=== PATIENT | female | born 1935 | race Caucasian/White ===

== ENCOUNTER 2022-04-18 17:28 | Inpatient (IN) | payer MEDICARE, MEDICAID ==
[~2022-04-18] VITALS: Ht 160 cm; Wt 63.5 kg
[2022-04-18 19:50] LABS: CALCIUM, SERUM 9.2 mg/dL (8.5-10.1); CARBON DIOXIDE 25 mmol/L (21-32); CHLORIDE 106 mmol/L (98-107); CREATININE 0.9 mg/dL (0.6-1.3); GLUCOSE 110 mg/dL (74-106); POTASSIUM 3.8 mmol/L (3.5-5.1); SODIUM SERUM 143 mmol/L (136-145); UREA NITROGEN, BLOOD 17 mg/dL (7-18)
[2022-04-18 19:51] LABS: BASOPHILS % (AUTO) 0.3 % (0.0-2.0); EOSINOPHILS % (AUTO) 0.8 % (0.0-6.0); HEMATOCRIT 34 % (33-45); HEMOGLOBIN 11.6 g/dL (11.5-14.8); LYMPHOCYTES # (AUTO) 1.3 K/uL (0.8-4.8); LYMPHOCYTES % (AUTO) 34.1 % (20.0-44.0); MEAN CORPUSCULAR HGB CONC 34 g/dl (31.0-36.0); MEAN CORPUSCULAR VOLUME 95 fL (82-100); MONOCYTES # (AUTO) 0.4 K/uL (0.1-1.30); MONOCYTES % (AUTO) 11.1 % (2.0-12.0); NEUTROPHILS # (AUTO) 2.1 K/uL (1.8-8.9); NEUTROPHILS % (AUTO) 53.7 % (43.0-81.0); PLATELET COUNT (AUTO) 178 K/uL (150-450); RED BLOOD CELL COUNT(AUTO) 3.57 MIL/uL (4.0-5.2)
[2022-04-18 19:58] LABS: ALANINE AMINOTRANSFERASE 23 U/L (12-78); ALCOHOL, BLOOD < 3 mg/dL (0-0); ALKALINE PHOSPHATASE 80 U/L (46-116); BILIRUBIN,DIRECT 0.1 mg/dL (0.0-0.2); BILIRUBIN,TOTAL 0.3 mg/dL (0.2-1.0); TOTAL PROTEIN, SERUM 7.5 g/dL (6.4-8.2)
[2022-04-18 20:02] LABS: BILIRUBIN,URINE NEGATIVE (NEGATIVE); COLOR,URINE YELLOW (YELLOW); LEUKOCYTE ESTERASE ,URINE NEGATIVE (NEGATIVE); NITRITE, URINE NEGATIVE (NEGATIVE); PROTEIN,URINE NEGATIVE (NEGATIVE); UGLUCOSE NEGATIVE (NEGATIVE); UROBILINOGEN,URINE 0.2 EU/dL (0.2)
[2022-04-18 20:05] LABS: ACETAMINOPHEN < 10 ug/ml (10-30)
[2022-04-18] MEDS ORDERED: LORAZEPAM 1 MG TABLET ONE (21:49)
[2022-04-18] MEDS ORDERED: LORAZEPAM 1 MG TABLET PO ONE (22:00)
[2022-04-18] MEDS ORDERED: OLANZAPINE 10 MG VIAL IM ONE ×2 (22:18→22:30)
[2022-04-18] MEDS ORDERED: diphenhydrAMINE HCL 50 MG/ML VIAL ONE (22:18)
[2022-04-18] MEDS ORDERED: diphenhydrAMINE HCL 50 MG/ML VIAL IM ONE (22:30)
[2022-04-18 22:47] LABS: ASPARTATE AMINOTRANSFERASE 20 U/L (15-37)
[2022-04-19] MEDS ORDERED: LOSA100T31 PO (00:54)
[2022-04-19] MEDS ORDERED: ROSU20TA2 PO (00:54)
[2022-04-19] MEDS ORDERED: CYAN-51 PO (00:54)
[2022-04-19] MEDS ORDERED: AMLO-213 PO (00:54)
[2022-04-19] MEDS ORDERED: LATA2.5D15 EACHEYE (00:54)
[2022-04-19] MEDS ORDERED: CHOL100043 PO (01:51)
[2022-04-19] MEDS ORDERED: ACETAMINOPHEN 325 MG TABLET PO PRN (02:00)
[2022-04-19] MEDS ORDERED: LORAZEPAM 0.5 MG TABLET PO PRN (02:00)
[2022-04-19] MEDS ORDERED: MAGNESIUM HYDROXIDE 30 ML UDC PO PRN (02:00)
[2022-04-19] MEDS ORDERED: BLOOD SUGAR DIAGNOSTIC 1 EACH STRIP IN ONE (02:00)
[2022-04-19] MEDS ORDERED: MAG HYDROX/AL HYDROX/SIMETH 30 ML UDC PO PRN (02:00)
[2022-04-19] MEDS ORDERED: TEMAZEPAM 7.5 MG CAPSULE PO PRN (02:00)
[2022-04-19 02:33] VITALS: BP 130/74
[2022-04-19 08:00] VITALS: BP 146/63
[2022-04-19] MEDS: CYANOCOBALAMIN 500 MCG TABLET PO SCH (12:45)
[2022-04-19] MEDS: CHOLECALCIFEROL (VITAMIN D 3) 400 UNIT TABLET PO SCH (12:45)
[2022-04-19] MEDS: AMLODIPINE BESYLATE 10 MG TABLET PO SCH (12:45)
[2022-04-19] MEDS: LOSARTAN POTASSIUM 50 MG TABLET PO SCH (12:45)
[2022-04-19 16:00] VITALS: BP 109/62
[2022-04-19 20:23] VITALS: BP 111/62
[2022-04-19] MEDS: MIRTAZAPINE 15 MG TABLET PO SCH (21:10)
[2022-04-19] MEDS: ATORVASTATIN 10 MG TABLET PO SCH (21:10)
[2022-04-19] MEDS: LATANOPROST EYE DROP 0.005% 2.5 ML BOTTLE EACHEYE SCH (21:11)
[2022-04-20 06:30] LABS: BASOPHILS % (AUTO) 0.5 % (0.0-2.0); EOSINOPHILS % (AUTO) 1.1 % (0.0-6.0); HEMATOCRIT 33 % (33-45); HEMOGLOBIN 11.1 g/dL (11.5-14.8); LYMPHOCYTES # (AUTO) 1.9 K/uL (0.8-4.8); LYMPHOCYTES % (AUTO) 33.6 % (20.0-44.0); MEAN CORPUSCULAR HGB CONC 34 g/dl (31.0-36.0); MEAN CORPUSCULAR VOLUME 95 fL (82-100); MONOCYTES # (AUTO) 0.5 K/uL (0.1-1.30); MONOCYTES % (AUTO) 9.3 % (2.0-12.0); NEUTROPHILS # (AUTO) 3.1 K/uL (1.8-8.9); NEUTROPHILS % (AUTO) 55.5 % (43.0-81.0); PLATELET COUNT (AUTO) 194 K/uL (150-450); RED BLOOD CELL COUNT(AUTO) 3.43 MIL/uL (4.0-5.2); WHITE BLOOD COUNT (AUTO) 5.6 K/uL (4.3-11.0)
[2022-04-20 06:35] LABS: CALCIUM, SERUM 9.2 mg/dL (8.5-10.1); CARBON DIOXIDE 26 mmol/L (21-32); CHLORIDE 107 mmol/L (98-107); CREATININE 1.2 mg/dL (0.6-1.3); GLUCOSE 93 mg/dL (74-106); POTASSIUM 4.3 mmol/L (3.5-5.1); SODIUM SERUM 141 mmol/L (136-145); UREA NITROGEN, BLOOD 23 mg/dL (7-18)
[2022-04-20 06:39] LABS: CHOLESTEROL 135 mg/dL (<200); HDL CHOLESTEROL 50 mg/dL (40-60); LDL 69 mg/dL (0-99); TRIGLYCERIDES 102 mg/dL (30-150)
[2022-04-20 08:00] VITALS: BP 116/57
[2022-04-20] MEDS ORDERED: MAGN400O6 PO (08:28)
[2022-04-20] MEDS ORDERED: LOPE2CAP PO (08:28)
[2022-04-20] MEDS ORDERED: ACET-868 PO (08:28)
[2022-04-20] MEDS ORDERED: MAG30ORA PO (08:28)
[2022-04-20] MEDS: LOSARTAN POTASSIUM 50 MG TABLET PO SCH (08:42)
[2022-04-20] MEDS: AMLODIPINE BESYLATE 10 MG TABLET PO SCH (08:42)
[2022-04-20] MEDS: CYANOCOBALAMIN 500 MCG TABLET PO SCH (08:44)
[2022-04-20] MEDS: CHOLECALCIFEROL (VITAMIN D 3) 400 UNIT TABLET PO SCH (08:44)
[2022-04-20] MEDS: DIVALPROEX SODIUM 125 MG CAP.SPRINK PO SCH ×2 (12:24→20:32)
[2022-04-20 16:00] VITALS: BP 98/50
[2022-04-20] MEDS: MIRTAZAPINE 15 MG TABLET PO SCH (20:32)
[2022-04-20] MEDS: ATORVASTATIN 10 MG TABLET PO SCH (20:32)
[2022-04-20] MEDS: LATANOPROST EYE DROP 0.005% 2.5 ML BOTTLE EACHEYE SCH (20:38)
[2022-04-20 21:09] VITALS: BP 122/63
[2022-04-21 04:00] VITALS: BP 128/63
[2022-04-21 08:00] VITALS: BP 151/79
[2022-04-21] MEDS: DIVALPROEX SODIUM 125 MG CAP.SPRINK PO SCH (08:41)
[2022-04-21] MEDS: LOSARTAN POTASSIUM 50 MG TABLET PO SCH (08:41)
[2022-04-21] MEDS: CHOLECALCIFEROL (VITAMIN D 3) 400 UNIT TABLET PO SCH (08:41)
[2022-04-21 08:42] VITALS: BP 151/79
[2022-04-21] MEDS: CYANOCOBALAMIN 500 MCG TABLET PO SCH (08:42)
[2022-04-21] MEDS: AMLODIPINE BESYLATE 10 MG TABLET PO SCH (08:42)
== END 2022-04-21 13:28 | DRG 885 ==
LOC: ER 17:30 → GPS 04-19 00:42
PROVIDERS: ADMIT Psychiatry & Neurology Psychosomatic Medicine; ATTEND Nurse Practitioner Acute Care
DX: F33.2 Major depressive disorder, recurrent severe without psychotic features (principal); N17.9 Acute kidney failure, unspecified; R45.851 Suicidal ideations; F03.93 Unspecified dementia, unspecified severity, with mood disturbance; F03.94 Unspecified dementia, unspecified severity, with anxiety; F39 Unspecified mood [affective] disorder; F60.3 Borderline personality disorder; Z73.6 Limitation of activities due to disability; I10 Essential (primary) hypertension; Z20.822 Contact with and (suspected) exposure to COVID-19
CPT/HCPCS: 36415; 70450-TC; 80048-TC; 80061-TC; 80076-TC; 82962-TC; 85025-TC; 87081-TC; 97112-TC; 97116-TC; 97530-TC; C9803; G0480; J1200; J3490